=== PATIENT | female | born 1940 | race Two or more races ===

== ENCOUNTER 2017-10-21 09:00 | Inpatient (IN) | payer OTHER, MEDICAID ==
[~2017-10-21] VITALS: Ht 162.6 cm; Wt 63.6 kg
[~2017-10-21 09:00] MED LIST: HYDR25T PO; LORA-352 PO; OXYB15TA12 PO; SERT-160 PO; ZIPR80CA9 PO
[2017-10-21 10:49] LABS: Hemoglobin 12.3 g/dL (12.2-16.2); Red Cell Distribution Width 18.5 % (11.8-14.3)
[2017-10-21 10:52] LABS: Hematocrit 37.7 % (36.0-46.0); Mean Corpuscular Hemoglobin 24.9 pg (28.0-32.0); Mean Corpuscular Hgb Conc. 32.6 g/dL (32.0-36.0); Mean Corpuscular Volume 76.5 fL (80.0-100.0); Platelet Count (auto) 258 10^3/uL (140-450); Red Blood Cells 4.93 10^6/uL (4.0-5.20); White Blood Cell 5.4 10^3/uL (4.4-10.8)
[2017-10-21] MEDS ORDERED: SODIUM CHLORIDE 0.9% 1,000 ML IVB ONE (10:54)
[2017-10-21] MEDS ORDERED: LEVOFLOXACIN 500 MG/100 ML PREMIX BAG IV ONE (11:00)
[2017-10-21 11:05] LABS: Band Neutrophils % (manual) 0; Basophils % (manual) 0 (0.0-2.0); Blast Cells 0; Eosinophils % (manual) 0 (0-7); Metamyelocytes % 0; Myelocytes % 0; Promyelocytes % 0; Reactive Lymphocytes 0
[2017-10-21 11:20] LABS: Alanine Aminotransferase 9 U/L (13-56); Albumin 3.5 g/dL (3.4-5.0); Alkaline Phosphatase 86 U/L (45-117); Anion Gap 13 (5-15); Aspartate Aminotransferase 14 U/L (15-37); BUN/Creatinine Ratio 5.1; Bilirubin, Total 0.3 mg/dL (0.2-1.0); Blood Urea Nitrogen 6 mg/dL (7-18); Calcium 8.9 mg/dL (8.5-10.1); Carbon Dioxide 22 mmol/L (21-32); Chloride 104 mmol/L (98-107); GFR African American 57 mL/min; GFR Non-African American 47 mL/min; Glucose 75 mg/dL (74-106); Potassium 3.4 mmol/L (3.5-5.1); Sodium 139 mmol/L (136-145)
[2017-10-21 11:58] LABS: Lactic Acid w/Reflex 2.4 mmol/L (0.4-2.0)
[2017-10-21 12:14] LABS: Lymphocytes % (manual) 35 (10.0-50.0); Monocytes % (manual) 8 (0-12)
[2017-10-21] MEDS ORDERED: ONDANSETRON HCL 4 MG/2 ML VIAL IV PRN (13:00)
[2017-10-21] MEDS ORDERED: HYDROcodone-ACET 5/325MG TAB PO PRN (13:00)
[2017-10-21] MEDS ORDERED: MORPHINE SULFATE 10 MG/ML INJ 1ML SDV IV PRN (13:00)
[2017-10-21] MEDS ORDERED: methylPREDNISolone SOD SUCC 125 MG/2 ML VL IV ONE (13:15)
[2017-10-21] MEDS ORDERED: LORA-622 PO (13:55)
[2017-10-21] MEDS ORDERED: ATOR20TA50 PO (13:55)
[2017-10-21] MEDS ORDERED: LORA1TAB12 PO (13:55)
[2017-10-21] MEDS ORDERED: ZIPR80CA8 PO (13:57)
[2017-10-21] MEDS ORDERED: SERT-135 PO (13:57)
[2017-10-21] MEDS ORDERED: HYDR50CA2 PO (14:03)
[2017-10-21] MEDS ORDERED: LEVO75TA6 PO (14:03)
[2017-10-21] MEDS ORDERED: BRIM0.1S3 EACHEYE (14:03)
[2017-10-21] MEDS ORDERED: ERY05OO OP (14:03)
[2017-10-21] MEDS ORDERED: PERP2TAB6 PO (14:03)
[2017-10-21] MEDS ORDERED: CARB25TA22 PO (14:03)
[2017-10-21] MEDS ORDERED: ALEN70TA2 PO (14:03)
[2017-10-21 14:09] LABS: INR 0.95 (0.9-1.15); Partial Thromboplastin Time 31.4 sec (22.64-33.71); Prothrombin Time 10.4 sec (9.37-12.3)
[2017-10-21] MEDS ORDERED: guaiFENesin 200 MG/10 ML UD PO PRN (15:00)
[2017-10-21] MEDS: CARBIDOPA W LEVODOPA 25/100mg TABLET PO SCH ×2 (15:45→21:59)
[2017-10-21] MEDS ORDERED: LORazepam 0.5 MG TAB PO PRN (17:15)
[2017-10-21] MEDS: AZITHROMYCIN 500MG/ 250ML 250 ML IV SCH (17:25)
[2017-10-21] MEDS: cefTRIAXone 1GM/10ml IVPUSH 10 ML IV SCH (17:25)
[2017-10-21] MEDS: ERYTHROMY OPTH OINT 5mg/gm 1gm RIGHTEYE SCH ×2 (18:00→22:00)
[2017-10-21] MEDS: IPRATROPIUM BROM 0.5 MG/2.5ML INH SOL NEB SCH (18:04)
[2017-10-21] MEDS: BUDESONIDE (INHALATION) 0.5 MG/2 ML NEB NEB SCH (18:04)
[2017-10-21] MEDS: ALBUTEROL SULF 2.5 MG/0.5ML(0.5%) NEB SOLN NEB SCH (18:04)
[2017-10-21 20:50] VITALS: BP 109/52
[2017-10-21] MEDS: hydrOXYzine 25 MG TAB or CAP PO SCH (21:58)
[2017-10-21] MEDS: ATORVASTATIN 20 MG TAB PO SCH (21:58)
[2017-10-21] MEDS: methylPREDNISolone SOD SUCC 40 MG/ML VL IV SCH (21:58)
[2017-10-21] MEDS: SERTRALINE HCL 50 MG TAB PO SCH (21:59)
[2017-10-21] MEDS: ZIPRASIDONE 80MG PO SCH (22:00)
[2017-10-21] MEDS ORDERED: ZIPRASIDONE HCL 80 MG CAP PO SCH (22:00)
[2017-10-21] MEDS ORDERED: PATIENTS OWN MEDICATION (Carbidopa-Levodopa (Carbidopa/Levodopa Odt 25-100 mg) 1 TAB) PO SCH (22:00)
[2017-10-21] MEDS ORDERED: PATIENTS OWN MEDICATION (Sertraline Hcl 1 TAB) PO SCH (22:00)
[2017-10-21] MEDS: BRIMONIDINE 0.2% OPTH Soln 5ml EACHEYE SCH (22:01)
[2017-10-21 22:51] VITALS: BP 109/52
[2017-10-22] MEDS: IPRATROPIUM BROM 0.5 MG/2.5ML INH SOL NEB SCH ×4 (00:30→19:08)
[2017-10-22] MEDS: ALBUTEROL SULF 2.5 MG/0.5ML(0.5%) NEB SOLN NEB SCH ×2 (00:30→07:20)
[2017-10-22 05:00] VITALS: BP 107/66
[2017-10-22] MEDS: ERYTHROMY OPTH OINT 5mg/gm 1gm RIGHTEYE SCH ×5 (05:24→22:19)
[2017-10-22] MEDS: CARBIDOPA W LEVODOPA 25/100mg TABLET PO SCH ×3 (05:25→22:22)
[2017-10-22] MEDS: LEVOTHYROXINE SODIUM 25 MCG TAB PO SCH (06:09)
[2017-10-22] MEDS: BUDESONIDE (INHALATION) 0.5 MG/2 ML NEB NEB SCH ×2 (07:20→19:09)
[2017-10-22 08:00] VITALS: BP 103/43
[2017-10-22 08:26] LABS: Basophils # (auto) 0 uL; Eosinophils # (auto) 0 uL; Hematocrit 35.3 % (36.0-46.0); Hemoglobin 11.7 g/dL (12.2-16.2); Lymphocytes # (auto) 0.8 uL; Mean Corpuscular Hgb Conc. 33.2 g/dL (32.0-36.0); Monocytes # (auto) 0.2 uL; Monocytes % (auto) 3.7 % (0.0-12.0); Neutrophils # (auto) 4.4 uL; White Blood Cell 5.4 10^3/uL (4.4-10.8)
[2017-10-22 08:29] LABS: Basophils % (auto) 0.3 % (0.0-2.0); Lymphocytes % (auto) 14.3 % (10.0-50.0); Mean Corpuscular Hemoglobin 25.1 pg (28.0-32.0); Mean Corpuscular Volume 75.5 fL (80.0-100.0); Neutrophils % (auto) 81.7 % (37.0-80.0); Nucleated Red Blood Cells % 0.1 %; Platelet Count (auto) 231 10^3/uL (140-450); Red Blood Cells 4.67 10^6/uL (4.0-5.20); Red Cell Distribution Width 18.5 % (11.8-14.3)
[2017-10-22 08:50] LABS: BUN/Creatinine Ratio 10.7; Calcium 8.5 mg/dL (8.5-10.1)
[2017-10-22 09:00] VITALS: BP 103/43
[2017-10-22] MEDS ORDERED: PATIENTS OWN MEDICATION (Levothyroxine Sodium 1 TAB) PO SCH (10:00)
[2017-10-22] MEDS: BRIMONIDINE 0.2% OPTH Soln 5ml EACHEYE SCH ×2 (10:00→22:19)
[2017-10-22] MEDS ORDERED: PANTOPRAZOLE 40 MG/10 ML VIAL IV SCH (10:00)
[2017-10-22] MEDS ORDERED: LEVOFLOXACIN 500MG 100 ML IV SCH (10:00)
[2017-10-22] MEDS: methylPREDNISolone SOD SUCC 40 MG/ML VL IV SCH (10:31)
[2017-10-22] MEDS: AZITHROMYCIN 500MG/ 250ML 250 ML IV SCH (10:31)
[2017-10-22] MEDS: SERTRALINE HCL 50 MG TAB PO SCH ×2 (10:31→22:20)
[2017-10-22] MEDS: cefTRIAXone 1GM/10ml IVPUSH 10 ML IV SCH (10:32)
[2017-10-22 13:00] VITALS: BP 115/82
[2017-10-22] MEDS ORDERED: methylPREDNISolone SOD SUCC 125 MG/2 ML VL IV SCH (14:00)
[2017-10-22] MEDS: LEVALBUTEROL HCL 1.25 MG/3 ML NEB IN PRN ×2 (14:13→19:08)
[2017-10-22] MEDS: predniSONE 20 MG TAB PO SCH ×2 (15:50→22:20)
[2017-10-22 17:00] VITALS: BP 119/56
[2017-10-22 22:00] VITALS: BP 146/91
[2017-10-22] MEDS: ZIPRASIDONE 80MG PO SCH (22:00)
[2017-10-22] MEDS: ATORVASTATIN 20 MG TAB PO SCH (22:20)
[2017-10-22] MEDS: hydrOXYzine 25 MG TAB or CAP PO SCH (22:20)
[2017-10-23] MEDS: IPRATROPIUM BROM 0.5 MG/2.5ML INH SOL NEB SCH ×3 (00:48→11:46)
[2017-10-23] MEDS: LEVALBUTEROL HCL 1.25 MG/3 ML NEB IN PRN (00:48)
[2017-10-23 05:00] VITALS: BP 153/83
[2017-10-23] MEDS: ERYTHROMY OPTH OINT 5mg/gm 1gm RIGHTEYE SCH ×2 (05:30→12:00)
[2017-10-23] MEDS: predniSONE 20 MG TAB PO SCH (05:30)
[2017-10-23] MEDS: CARBIDOPA W LEVODOPA 25/100mg TABLET PO SCH (05:30)
[2017-10-23] MEDS: LEVOTHYROXINE SODIUM 25 MCG TAB PO SCH (06:08)
[2017-10-23] MEDS: BUDESONIDE (INHALATION) 0.5 MG/2 ML NEB NEB SCH (07:14)
[2017-10-23 09:06] VITALS: BP 142/88
[2017-10-23] MEDS ORDERED: PANTOPRAZOLE 40 MG TAB PO SCH (10:00)
[2017-10-23] MEDS: SERTRALINE HCL 50 MG TAB PO SCH (10:00)
[2017-10-23] MEDS ORDERED: AZITHROMYCIN 250 MG TAB PO SCH ×2 (10:00)
[2017-10-23] MEDS: BRIMONIDINE 0.2% OPTH Soln 5ml EACHEYE SCH (10:00)
[2017-10-23] MEDS ORDERED: cefTRIAXone W LIDOCAINE 1 GM IM IM SCH (10:00)
[2017-10-23 11:32] VITALS: BP 135/67
[2017-10-23 13:00] VITALS: BP 128/80
== END 2017-10-23 12:55 | disposition home health service (06) | DRG 189 ==
LOC: EDUNIT# 09:00 → ER 09:00 → EDBD 09:00 → TELE 09:01 → WEST WING 20:48
PROVIDERS: ADMIT Internal Medicine; ATTEND Family Medicine
DX: J96.00 Acute respiratory failure, unspecified whether with hypoxia or hypercapnia (principal); G20 Parkinson's disease; J44.0 Chronic obstructive pulmonary disease with (acute) lower respiratory infection; J44.1 Chronic obstructive pulmonary disease with (acute) exacerbation; E78.5 Hyperlipidemia, unspecified; E03.9 Hypothyroidism, unspecified; E87.6 Hypokalemia; F29 Unspecified psychosis not due to a substance or known physiological condition; F41.1 Generalized anxiety disorder; R32 Unspecified urinary incontinence; R73.9 Hyperglycemia, unspecified; Z82.49 Family history of ischemic heart disease and other diseases of the circulatory system; Z79.899 Other long term (current) drug therapy; Z79.83 Long term (current) use of bisphosphonates
CPT/HCPCS: 36415; 71045; 80048; 80053; 80061; 83605; 83735; 84443; 84484; 85007; 85025; 85027; 85379; 85610; 85730; 87040; 93005; 94640; 94761; 96361; 96365; 96375; 97163; C9113; J0696; J1956

== ENCOUNTER 2022-05-05 07:04 | Inpatient (IN) | payer OTHER, MEDICAID ==
[~2022-05-05] VITALS: Ht 157.5 cm; Wt 49.0 kg
[~2022-05-05 07:04] MED LIST changes: +ATOR20TA50 PO; +BRIM0.1S3 EACHEYE; +CARB25TA79 PO; +ERY05OO OP; +HYDR-3682 PO; -HYDR25T PO; +LEVO75TA6 PO; -LORA-352 PO; +LORA1TAB23 PO; +MONT5CHW23 PO; -OXYB15TA12 PO; +POM IN; +POM PO; -SERT-160 PO; +SERT50TA19 PO; +ZIPR80CA37 PO; -ZIPR80CA9 PO
[2022-05-05] MEDS ORDERED: SODIUM CHLORIDE 0.9% 1,000 ML IV ONE (07:30)
[2022-05-05 09:01] LABS: Basophils # (auto) 0 10 ^3/uL (0-0.2); Basophils % (auto) 0.5 % (0.0-2.0); Eosinophils # (auto) 0 10 ^3/uL (0-0.8); Eosinophils % (auto) 0.2 % (0.0-7.0); Hematocrit 36.5 % (36.0-46.0); Hemoglobin 11.8 g/dL (12.2-16.2); Lymphocytes # (auto) 0.6 10 ^3/uL (0.4-5.4); Lymphocytes % (auto) 22.7 % (10.0-50.0); Mean Corpuscular Hemoglobin 27.5 pg (28.0-32.0); Mean Corpuscular Hgb Conc. 32.5 g/dL (32.0-36.0); Mean Corpuscular Volume 84.6 fL (80.0-100.0); Monocytes # (auto) 0.3 10 ^3/uL (0-1.3); Monocytes % (auto) 9.1 % (0.0-12.0); Neutrophils # (auto) 1.9 10 ^3/uL (1.6-8.6); Neutrophils % (auto) 67.5 % (37.0-80.0); Red Blood Cells 4.31 10^6/uL (4.0-5.20); Red Cell Distribution Width 18.8 % (11.8-14.3); White Blood Cell 2.8 10^3/uL (4.4-10.8)
[2022-05-05 09:15] LABS: Calcium 7.1 mg/dL (8.5-10.1); Potassium 3.2 mmol/L (3.5-5.1)
[2022-05-05 09:19] LABS: BUN/Creatinine Ratio 15.3; Bilirubin, Total 0.3 mg/dL (0.2-1.0); Total Protein 5.8 g/dL (6.4-8.2)
[2022-05-05 09:53] LABS: Urine WBC None Seen /hpf (0 - 5)
[2022-05-05 10:40] LABS: Urine Amorphous Crystal FEW /hpf (None Seen); Urine Bacteria NONE SEEN /hpf (None Seen); Urine Blood TRACE /uL (Negative); Urine Mucus FEW (None Seen); Urine Specific Gravity 1.017 (1.001-1.035)
[2022-05-05] MEDS ORDERED: MORPHINE SULFATE INJ 2 MG/ml SYRG IV PRN (12:15)
[2022-05-05] MEDS ORDERED: NITROGLYCERIN 0.4 MG SL TAB SL PRN (12:15)
[2022-05-05 13:31] LABS: INR 0.99 (0.9-1.15)
[2022-05-05] MEDS: POTASSIUM CHLORIDE 20 MEQ in D5W/LACTATED RINGERS 1,000 ML IV SCH ×2 (13:47→23:19)
[2022-05-05] MEDS: MORPHINE SULFATE INJ 2 MG/ml SYRG IV PRN ×2 (15:05→21:28)
[2022-05-05 17:00] VITALS: BP 122/85
[2022-05-05 17:11] LABS: Cholesterol 267 mg/dL (< 200)
[2022-05-05 17:13] LABS: HDL Cholesterol 48 mg/dL (40-59); LDL Cholesterol 212 mg/dL (< 100); Triglycerides 142 mg/dL (< 150)
[2022-05-05 17:36] LABS: Alcohol, Urine < 3.0 mg/dL (0-10); Amphetamine Screen, Urine NEGATIVE (NEGATIVE); Barbiturate Scree,Urine NEGATIVE (NEGATIVE); Benzodiazephine Screen, Urine POSITIVE (NEGATIVE); Cannabinoid Screen, Urine NEGATIVE (NEGATIVE); Cocaine Screen, Urine NEGATIVE (NEGATIVE); Opiate Scree,Urine NEGATIVE (NEGATIVE); Phencyclidine Screen, Urine NEGATIVE (NEGATIVE)
[2022-05-05 22:00] VITALS: BP 115/62
[2022-05-05] MEDS: ACETAMINOPHEN 325 MG TAB PO PRN (23:00)
[2022-05-05] MEDS ORDERED: POTASSIUM CHL 20MEQ/100ML 100 ML IV ONE (23:05)
[2022-05-06 05:00] VITALS: BP 123/70
[2022-05-06 07:50] VITALS: BP 135/85
[2022-05-06 08:14] LABS: Basophils # (auto) 0 10 ^3/uL (0-0.2); Basophils % (auto) 0.4 % (0.0-2.0); Eosinophils # (auto) 0 10 ^3/uL (0-0.8); Eosinophils % (auto) 0.2 % (0.0-7.0); Hemoglobin 11.2 g/dL (12.2-16.2); Lymphocytes # (auto) 1.1 10 ^3/uL (0.4-5.4); Lymphocytes % (auto) 31.6 % (10.0-50.0); Mean Corpuscular Hemoglobin 27.8 pg (28.0-32.0); Mean Corpuscular Hgb Conc. 32.8 g/dL (32.0-36.0); Mean Corpuscular Volume 84.7 fL (80.0-100.0); Monocytes # (auto) 0.5 10 ^3/uL (0-1.3); Monocytes % (auto) 14.7 % (0.0-12.0); Neutrophils # (auto) 1.9 10 ^3/uL (1.6-8.6); Neutrophils % (auto) 53.1 % (37.0-80.0); Nucleated Red Blood Cells % 0.1 %; Red Blood Cells 4.02 10^6/uL (4.0-5.20); Red Cell Distribution Width 18.7 % (11.8-14.3); White Blood Cell 3.6 10^3/uL (4.4-10.8)
[2022-05-06 08:28] LABS: Calcium 8.1 mg/dL (8.5-10.1)
[2022-05-06 08:33] LABS: Albumin 2.7 g/dL (3.4-5.0); BUN/Creatinine Ratio 10.2; Bilirubin, Total 0.5 mg/dL (0.2-1.0)
[2022-05-06] MEDS ORDERED: ENOXAPARIN SOD 30 MG/0.3 ML SYRINGE SC SCH (10:00)
[2022-05-06] MEDS: POTASSIUM CHLORIDE 20 MEQ in D5W/LACTATED RINGERS 1,000 ML IV SCH ×2 (10:04→11:46)
[2022-05-06] MEDS: ACETAMINOPHEN 325 MG TAB PO PRN (10:08)
[2022-05-06] MEDS ORDERED: LORazepam 0.5 MG TAB PO ONE (10:45)
[2022-05-06] MEDS ORDERED: LORazepam 0.5 MG TAB PO PRN (10:45)
[2022-05-06] MEDS ORDERED: SERTRALINE HCL 50 MG TAB PO ONE (10:45)
[2022-05-06] MEDS ORDERED: CARBIDOPA W LEVODOPA 25/100mg TABLET PO ONE (10:45)
[2022-05-06] MEDS ORDERED: LEVOTHYROXINE SODIUM 25 MCG TAB PO ONE (10:45)
[2022-05-06 13:00] VITALS: BP 102/62
[2022-05-06] MEDS: HYDROcodone-ACET 5/325MG TAB PO PRN (13:04)
[2022-05-06] MEDS: CARBIDOPA W LEVODOPA 25/100mg TABLET PO SCH ×2 (13:04→22:19)
[2022-05-06 17:00] VITALS: BP 107/70
[2022-05-06] MEDS: BRIMONIDINE 0.2% OPTH Soln 5ml EACHEYE SCH (22:18)
[2022-05-06] MEDS: FAMOTIDINE 20 MG TAB PO SCH (22:19)
[2022-05-06] MEDS: SERTRALINE HCL 50 MG TAB PO SCH (22:19)
[2022-05-06] MEDS: ATORVASTATIN 20 MG TAB PO SCH (22:19)
[2022-05-06] MEDS: MONTELUKAST SODIUM 10 MG TAB PO SCH (22:19)
[2022-05-07] MEDS: POTASSIUM CHLORIDE 20 MEQ in D5W/LACTATED RINGERS 1,000 ML IV SCH (03:35)
[2022-05-07 05:08] LABS: Basophils # (auto) 0 10 ^3/uL (0-0.2); Basophils % (auto) 0.3 % (0.0-2.0); Eosinophils # (auto) 0 10 ^3/uL (0-0.8); Eosinophils % (auto) 0.4 % (0.0-7.0); Hematocrit 31.6 % (36.0-46.0); Hemoglobin 10.8 g/dL (12.2-16.2); Lymphocytes # (auto) 0.9 10 ^3/uL (0.4-5.4); Lymphocytes % (auto) 24.4 % (10.0-50.0); Mean Corpuscular Hemoglobin 28.8 pg (28.0-32.0); Mean Corpuscular Hgb Conc. 34.3 g/dL (32.0-36.0); Mean Corpuscular Volume 83.9 fL (80.0-100.0); Monocytes # (auto) 0.5 10 ^3/uL (0-1.3); Monocytes % (auto) 12.8 % (0.0-12.0); Neutrophils # (auto) 2.3 10 ^3/uL (1.6-8.6); Neutrophils % (auto) 62.1 % (37.0-80.0); Red Blood Cells 3.77 10^6/uL (4.0-5.20); Red Cell Distribution Width 18.6 % (11.8-14.3); White Blood Cell 3.7 10^3/uL (4.4-10.8)
[2022-05-07] MEDS: LEVOTHYROXINE SODIUM 25 MCG TAB PO SCH (05:11)
[2022-05-07] MEDS: CARBIDOPA W LEVODOPA 25/100mg TABLET PO SCH ×3 (05:11→21:14)
[2022-05-07 05:29] LABS: BUN/Creatinine Ratio 7.1; Potassium 3.8 mmol/L (3.5-5.1)
[2022-05-07 09:00] VITALS: BP 91/55
[2022-05-07] MEDS: SERTRALINE HCL 50 MG TAB PO SCH ×2 (09:18→21:14)
[2022-05-07] MEDS: BRIMONIDINE 0.2% OPTH Soln 5ml EACHEYE SCH ×2 (09:18→21:13)
[2022-05-07] MEDS: HYDROcodone-ACET 5/325MG TAB PO PRN ×3 (09:18→23:27)
[2022-05-07] MEDS: Ensure HIGH Protein Chocolate 8oz Bottle PO SCH ×2 (12:15→17:32)
[2022-05-07] MEDS: MONTELUKAST SODIUM 10 MG TAB PO SCH (21:14)
[2022-05-07] MEDS: ATORVASTATIN 20 MG TAB PO SCH (21:14)
[2022-05-07] MEDS: FAMOTIDINE 20 MG TAB PO SCH (21:14)
[2022-05-08 05:50] LABS: Basophils # (auto) 0 10 ^3/uL (0-0.2); Basophils % (auto) 0.3 % (0.0-2.0); Eosinophils # (auto) 0 10 ^3/uL (0-0.8); Eosinophils % (auto) 0.6 % (0.0-7.0); Hematocrit 30.8 % (36.0-46.0); Hemoglobin 10.2 g/dL (12.2-16.2); Lymphocytes # (auto) 1.4 10 ^3/uL (0.4-5.4); Mean Corpuscular Hemoglobin 28.1 pg (28.0-32.0); Mean Corpuscular Hgb Conc. 33.3 g/dL (32.0-36.0); Mean Corpuscular Volume 84.3 fL (80.0-100.0); Monocytes # (auto) 0.6 10 ^3/uL (0-1.3); Monocytes % (auto) 14.3 % (0.0-12.0); Neutrophils # (auto) 2.3 10 ^3/uL (1.6-8.6); Neutrophils % (auto) 52.8 % (37.0-80.0); Nucleated Red Blood Cells % 0.1 %; Red Blood Cells 3.65 10^6/uL (4.0-5.20); Red Cell Distribution Width 18.6 % (11.8-14.3); White Blood Cell 4.4 10^3/uL (4.4-10.8)
[2022-05-08] MEDS: CARBIDOPA W LEVODOPA 25/100mg TABLET PO SCH ×3 (06:24→21:42)
[2022-05-08] MEDS: LEVOTHYROXINE SODIUM 25 MCG TAB PO SCH (06:40)
[2022-05-08] MEDS: Ensure HIGH Protein Chocolate 8oz Bottle PO SCH ×3 (08:36→18:00)
[2022-05-08 09:00] VITALS: BP_SYST 125; BP_SYST 142; BP_DIAS 50; BP_DIAS 51
[2022-05-08] MEDS ORDERED: SERT-377 PO (10:14)
[2022-05-08] MEDS ORDERED: LEVO50TA7 PO (10:14)
[2022-05-08] MEDS: BRIMONIDINE 0.2% OPTH Soln 5ml EACHEYE SCH ×2 (10:35→21:42)
[2022-05-08] MEDS: HYDROcodone-ACET 5/325MG TAB PO PRN ×2 (10:36→14:51)
[2022-05-08] MEDS: SERTRALINE HCL 50 MG TAB PO SCH ×2 (10:36→21:43)
[2022-05-08 13:00] VITALS: BP_SYST 100; BP_SYST 126; BP_DIAS 50; BP_DIAS 51
[2022-05-08 16:50] VITALS: BP 110/58
[2022-05-08] MEDS: FAMOTIDINE 20 MG TAB PO SCH (21:42)
[2022-05-08] MEDS: ATORVASTATIN 20 MG TAB PO SCH (21:42)
[2022-05-08] MEDS: MONTELUKAST SODIUM 10 MG TAB PO SCH (21:43)
[2022-05-08 22:00] VITALS: BP 112/63
[2022-05-09 05:00] VITALS: BP 144/76
[2022-05-09 05:16] LABS: Basophils # (auto) 0 10 ^3/uL (0-0.2); Basophils % (auto) 0.5 % (0.0-2.0); Eosinophils # (auto) 0 10 ^3/uL (0-0.8); Eosinophils % (auto) 0.3 % (0.0-7.0); Hematocrit 35.4 % (36.0-46.0); Hemoglobin 11.6 g/dL (12.2-16.2); Lymphocytes # (auto) 1.2 10 ^3/uL (0.4-5.4); Lymphocytes % (auto) 24.2 % (10.0-50.0); Mean Corpuscular Hemoglobin 27.7 pg (28.0-32.0); Mean Corpuscular Hgb Conc. 32.7 g/dL (32.0-36.0); Mean Corpuscular Volume 84.7 fL (80.0-100.0); Monocytes # (auto) 0.7 10 ^3/uL (0-1.3); Monocytes % (auto) 14.2 % (0.0-12.0); Neutrophils # (auto) 3.1 10 ^3/uL (1.6-8.6); Neutrophils % (auto) 60.8 % (37.0-80.0); Nucleated Red Blood Cells % 0.2 %; Red Blood Cells 4.18 10^6/uL (4.0-5.20); White Blood Cell 5.1 10^3/uL (4.4-10.8)
[2022-05-09] MEDS: CARBIDOPA W LEVODOPA 25/100mg TABLET PO SCH ×3 (07:07→22:26)
[2022-05-09] MEDS: LEVOTHYROXINE SODIUM 25 MCG TAB PO SCH (07:07)
[2022-05-09 08:37] VITALS: BP 122/66
[2022-05-09] MEDS: Ensure HIGH Protein Chocolate 8oz Bottle PO SCH ×3 (09:33→18:13)
[2022-05-09] MEDS: BRIMONIDINE 0.2% OPTH Soln 5ml EACHEYE SCH ×2 (11:54→21:50)
[2022-05-09] MEDS: SERTRALINE HCL 50 MG TAB PO SCH ×2 (11:55→22:26)
[2022-05-09] MEDS: HYDROcodone-ACET 5/325MG TAB PO PRN (11:55)
[2022-05-09] MEDS: ACETAMINOPHEN 325 MG TAB PO PRN (21:49)
[2022-05-09] MEDS: MONTELUKAST SODIUM 10 MG TAB PO SCH (21:49)
[2022-05-09] MEDS: FAMOTIDINE 20 MG TAB PO SCH (21:50)
[2022-05-09] MEDS: ATORVASTATIN 20 MG TAB PO SCH (21:50)
[2022-05-09 22:00] VITALS: BP_SYST 115; BP_SYST 83; BP_DIAS 46; BP_DIAS 64
[2022-05-09 22:25] VITALS: BP 115/64
[2022-05-10 04:55] VITALS: BP 125/67
[2022-05-10] MEDS: LEVOTHYROXINE SODIUM 25 MCG TAB PO SCH (07:35)
[2022-05-10] MEDS: CARBIDOPA W LEVODOPA 25/100mg TABLET PO SCH ×2 (07:35→14:00)
[2022-05-10 08:30] VITALS: BP 110/69
[2022-05-10] MEDS: SERTRALINE HCL 50 MG TAB PO SCH (10:40)
[2022-05-10] MEDS: BRIMONIDINE 0.2% OPTH Soln 5ml EACHEYE SCH (10:40)
[2022-05-10] MEDS: Ensure HIGH Protein Chocolate 8oz Bottle PO SCH ×2 (10:41→12:00)
[2022-05-10 12:20] VITALS: BP 110/69
[2022-05-10 14:16] VITALS: BP 96/55
[2022-05-10] MEDS: HYDROcodone-ACET 5/325MG TAB PO PRN (14:42)
[2022-05-11] MEDS ORDERED: HYDR-4902 PO (07:21)
[2022-05-11] MEDS ORDERED: HYDR1SOL PO (12:48)
[2022-05-11] MEDS ORDERED: PERCOT PO (12:53)
== END 2022-05-10 15:20 | disposition home or self-care (01) | DRG 543 ==
LOC: ER 07:04 → EDBD 07:04 → TELE 12:11 → TELE-CENTR 14:35 → CENTRAL 05-07 10:56
PROVIDERS: ADMIT Registered Nurse; ATTEND Internal Medicine
DX: M48.56XA Collapsed vertebra, not elsewhere classified, lumbar region, initial encounter for fracture (principal); E46 Unspecified protein-calorie malnutrition; Z68.1 Body mass index [BMI] 19.9 or less, adult; E03.9 Hypothyroidism, unspecified; D69.6 Thrombocytopenia, unspecified; E78.5 Hyperlipidemia, unspecified; G20 Parkinson's disease; J45.909 Unspecified asthma, uncomplicated; K21.9 Gastro-esophageal reflux disease without esophagitis; S09.90XA Unspecified injury of head, initial encounter; F31.9 Bipolar disorder, unspecified; F41.9 Anxiety disorder, unspecified; Z20.822 Contact with and (suspected) exposure to COVID-19; Y93.01 Activity, walking, marching and hiking; W01.0XXA Fall on same level from slipping, tripping and stumbling without subsequent striking against object, initial encounter; I25.2 Old myocardial infarction; Z82.49 Family history of ischemic heart disease and other diseases of the circulatory system; Y92.89 Other specified places as the place of occurrence of the external cause; Y99.8 Other external cause status
CPT/HCPCS: 36415; 70450; 71045; 72131; 72192; 73030; 80048; 80053; 80061; 80307; 81001; 82962; 83735; 84443; 84484; 85025; 85610; 93005; 93306; 93886; 96361; 96374; 97110; 97116; 97163; 97530; G0378; J3480

== ENCOUNTER 2022-05-11 03:54 | Inpatient (IN) | payer OTHER, MEDICAID ==
[~2022-05-11] VITALS: Ht 152.4 cm; Wt 43.7 kg
[~2022-05-11 03:54] MED LIST changes: -ATOR20TA50 PO; -BRIM0.1S3 EACHEYE; -ERY05OO OP; -HYDR-3682 PO; +LEVO50TA7 PO; -LEVO75TA6 PO; -MONT5CHW23 PO; -POM IN; -POM PO; +SERT-377 PO; -SERT50TA19 PO; -ZIPR80CA37 PO
[2022-05-11] MEDS ORDERED: HYDROcodone-ACET 5/325MG TAB PO ONE (07:15)
[2022-05-11] MEDS ORDERED: HYDR-4902 PO (07:21)
[2022-05-11 08:09] LABS: Urine Bacteria MANY /hpf (None Seen); Urine Blood Negative /uL (Negative); Urine Mucus FEW (None Seen); Urine Specific Gravity 1.027 (1.001-1.035); Urine WBC 68 /hpf (0 - 5)
[2022-05-11 10:55] LABS: Hematocrit 30.3 % (36.0-46.0); Hemoglobin 9.9 g/dL (12.2-16.2); Mean Corpuscular Hemoglobin 27.6 pg (28.0-32.0); Mean Corpuscular Hgb Conc. 32.7 g/dL (32.0-36.0); Mean Corpuscular Volume 84.4 fL (80.0-100.0); Red Blood Cells 3.59 10^6/uL (4.0-5.20); Red Cell Distribution Width 17.8 % (11.8-14.3); White Blood Cell 2.1 10^3/uL (4.4-10.8)
[2022-05-11 10:57] LABS: Basophils % (manual) 0 (0.0-2.0); Blast Cells 0; Promyelocytes % 0; Reactive Lymphocytes 0
[2022-05-11 11:12] LABS: INR 0.97 (0.9-1.15); Partial Thromboplastin Time 36.6 sec (24.6-33.4)
[2022-05-11 11:13] LABS: Band Neutrophils % (manual) 6; Eosinophils % (manual) 1 (0-7); Lymphocytes % (manual) 39 (10.0-50.0); Metamyelocytes % 4; Monocytes % (manual) 20 (0-12); Myelocytes % 1
[2022-05-11 11:17] LABS: BUN/Creatinine Ratio 30.2; Potassium 3.9 mmol/L (3.5-5.1)
[2022-05-11] MEDS ORDERED: HYDR1SOL PO (12:48)
[2022-05-11] MEDS ORDERED: PERCOT PO (12:53)
[2022-05-11] MEDS: MORPHINE SULFATE INJ 2 MG/ml SYRG IV PRN (20:07)
[2022-05-11 21:06] VITALS: BP 109/63
[2022-05-11 22:00] VITALS: BP 109/63
[2022-05-11] MEDS: HYDROcodone-ACET 5/325MG TAB PO PRN (22:33)
[2022-05-12 05:00] VITALS: BP 93/45
[2022-05-12 08:00] VITALS: BP 147/77
[2022-05-12 08:30] VITALS: BP 147/77
[2022-05-12] MEDS: MORPHINE SULFATE INJ 2 MG/ml SYRG IV PRN (09:20)
[2022-05-12] MEDS ORDERED: LEVOTHYROXINE SODIUM 50 MCG TAB PO ONE (11:15)
[2022-05-12] MEDS: HYDROcodone-ACET 5/325MG TAB PO PRN ×2 (12:45→20:27)
[2022-05-12 13:13] VITALS: BP 152/81
[2022-05-12 16:38] VITALS: BP 132/79
[2022-05-12 18:21] LABS: Hematocrit 33.4 % (36.0-46.0); Hemoglobin 11.1 g/dL (12.2-16.2); Mean Corpuscular Hemoglobin 27.7 pg (28.0-32.0); Mean Corpuscular Hgb Conc. 33.1 g/dL (32.0-36.0); Mean Corpuscular Volume 83.7 fL (80.0-100.0); Red Blood Cells 3.99 10^6/uL (4.0-5.20); White Blood Cell 2.5 10^3/uL (4.4-10.8)
[2022-05-12 18:26] LABS: Basophils % (manual) 0 (0.0-2.0); Blast Cells 0; Eosinophils % (manual) 0 (0-7); Myelocytes % 0; Promyelocytes % 0
[2022-05-12 18:41] LABS: BUN/Creatinine Ratio 15.1; Calcium 8.2 mg/dL (8.5-10.1)
[2022-05-12 18:44] LABS: Bilirubin, Total 0.5 mg/dL (0.2-1.0); Total Protein 6.8 g/dL (6.4-8.2)
[2022-05-12 19:25] LABS: Lymphocytes % (manual) 30 (10.0-50.0); Monocytes % (manual) 15 (0-12)
[2022-05-12 19:26] LABS: Band Neutrophils % (manual) 2; Metamyelocytes % 1; Reactive Lymphocytes 2
[2022-05-12 20:00] VITALS: BP 152/89
[2022-05-12] MEDS: ONDANSETRON HCL 4 MG/2 ML VIAL IV PRN (22:06)
[2022-05-12] MEDS: CARBIDOPA W LEVODOPA 25/100mg TABLET PO SCH (22:06)
[2022-05-12] MEDS: SERTRALINE HCL 50 MG TAB PO SCH (22:06)
[2022-05-13] MEDS: LORazepam 0.5 MG TAB PO PRN (01:50)
[2022-05-13] MEDS: LEVOTHYROXINE SODIUM 50 MCG TAB PO SCH (07:07)
[2022-05-13 08:05] VITALS: BP 112/68
[2022-05-13 09:00] VITALS: BP 112/68
[2022-05-13] MEDS: CARBIDOPA W LEVODOPA 25/100mg TABLET PO SCH ×2 (10:12→22:40)
[2022-05-13] MEDS: SERTRALINE HCL 50 MG TAB PO SCH ×2 (10:13→22:41)
[2022-05-13] MEDS: HYDROcodone-ACET 5/325MG TAB PO PRN ×3 (10:14→22:43)
[2022-05-13 13:00] VITALS: BP 119/71
[2022-05-13 22:00] VITALS: BP_SYST 103; BP_SYST 83; BP_DIAS 47; BP_DIAS 61
[2022-05-14 05:00] VITALS: BP 114/59
[2022-05-14] MEDS: HYDROcodone-ACET 5/325MG TAB PO PRN ×3 (06:16→22:58)
[2022-05-14] MEDS: LEVOTHYROXINE SODIUM 50 MCG TAB PO SCH (06:17)
[2022-05-14 08:15] VITALS: BP 94/54
[2022-05-14 09:00] VITALS: BP 94/54
[2022-05-14] MEDS: CARBIDOPA W LEVODOPA 25/100mg TABLET PO SCH ×2 (10:00→20:56)
[2022-05-14] MEDS: SERTRALINE HCL 50 MG TAB PO SCH ×2 (10:00→20:56)
[2022-05-14] MEDS: MORPHINE SULFATE INJ 2 MG/ml SYRG IV PRN ×2 (12:16→20:58)
[2022-05-14 13:00] VITALS: BP 120/72
[2022-05-14 16:36] VITALS: BP 115/68
[2022-05-14] MEDS: ONDANSETRON HCL 4 MG/2 ML VIAL IV PRN (20:58)
[2022-05-14 22:00] VITALS: BP 139/71
[2022-05-14] MEDS: LORazepam 0.5 MG TAB PO PRN (22:58)
[2022-05-15] VITALS (7 sets, daily range): BP systolic 99–133; BP diastolic 61–78
[2022-05-15] MEDS: LEVOTHYROXINE SODIUM 50 MCG TAB PO SCH (06:18)
[2022-05-15] MEDS: HYDROcodone-ACET 5/325MG TAB PO PRN (06:19)
[2022-05-15] MEDS: CARBIDOPA W LEVODOPA 25/100mg TABLET PO SCH ×2 (09:45→21:22)
[2022-05-15] MEDS: SERTRALINE HCL 50 MG TAB PO SCH ×2 (09:46→21:21)
[2022-05-15] MEDS: MORPHINE SULFATE INJ 2 MG/ml SYRG IV PRN ×2 (09:54→16:32)
[2022-05-16] VITALS (7 sets, daily range): BP systolic 105–157; BP diastolic 59–91
[2022-05-16] MEDS: HYDROcodone-ACET 5/325MG TAB PO PRN ×3 (04:43→16:22)
[2022-05-16] MEDS: LEVOTHYROXINE SODIUM 50 MCG TAB PO SCH (05:58)
[2022-05-16] MEDS: SERTRALINE HCL 50 MG TAB PO SCH ×2 (10:16→22:19)
[2022-05-16] MEDS: CARBIDOPA W LEVODOPA 25/100mg TABLET PO SCH ×2 (10:16→22:19)
[2022-05-16] MEDS: MORPHINE SULFATE INJ 2 MG/ml SYRG IV PRN (10:48)
[2022-05-17] VITALS (7 sets, daily range): BP systolic 101–132; BP diastolic 52–76
[2022-05-17] MEDS: HYDROcodone-ACET 5/325MG TAB PO PRN ×3 (01:35→21:05)
[2022-05-17] MEDS: LEVOTHYROXINE SODIUM 50 MCG TAB PO SCH (06:32)
[2022-05-17] MEDS: CARBIDOPA W LEVODOPA 25/100mg TABLET PO SCH ×2 (09:58→21:04)
[2022-05-17] MEDS: SERTRALINE HCL 50 MG TAB PO SCH ×2 (09:58→21:04)
[2022-05-17] MEDS: ONDANSETRON HCL 4 MG/2 ML VIAL IV PRN (11:02)
[2022-05-18 05:00] VITALS: BP 118/75
[2022-05-18] MEDS: LEVOTHYROXINE SODIUM 50 MCG TAB PO SCH ×2 (06:21→09:35)
[2022-05-18] MEDS: HYDROcodone-ACET 5/325MG TAB PO PRN ×2 (06:21→13:57)
[2022-05-18 08:00] VITALS: BP 110/80
[2022-05-18 09:00] VITALS: BP 101/80
[2022-05-18] MEDS: CARBIDOPA W LEVODOPA 25/100mg TABLET PO SCH ×2 (09:35→22:09)
[2022-05-18] MEDS: SERTRALINE HCL 50 MG TAB PO SCH ×2 (09:35→22:10)
[2022-05-18 13:00] VITALS: BP 100/61
[2022-05-18 17:00] VITALS: BP 94/54
[2022-05-18 22:00] VITALS: BP 122/74
[2022-05-19 05:00] VITALS: BP 124/68
[2022-05-19] MEDS: HYDROcodone-ACET 5/325MG TAB PO PRN ×2 (06:53→21:53)
[2022-05-19 09:00] VITALS: BP 110/69
[2022-05-19] MEDS: CARBIDOPA W LEVODOPA 25/100mg TABLET PO SCH ×2 (10:17→21:51)
[2022-05-19] MEDS: SERTRALINE HCL 50 MG TAB PO SCH ×2 (10:18→21:52)
[2022-05-19 13:00] VITALS: BP 149/61
[2022-05-19 17:00] VITALS: BP_SYST 123; BP_SYST 132; BP_DIAS 61; BP_DIAS 71
[2022-05-19 22:00] VITALS: BP 127/84
[2022-05-19] MEDS: ONDANSETRON HCL 4 MG/2 ML VIAL IV PRN (22:01)
[2022-05-20] VITALS (7 sets, daily range): BP systolic 79–123; BP diastolic 39–77
[2022-05-20] MEDS: LEVOTHYROXINE SODIUM 50 MCG TAB PO SCH (06:51)
[2022-05-20] MEDS: ONDANSETRON HCL 4 MG/2 ML VIAL IV PRN ×2 (06:57→18:50)
[2022-05-20] MEDS: MORPHINE SULFATE INJ 2 MG/ml SYRG IV PRN (06:58)
[2022-05-20] MEDS: SERTRALINE HCL 50 MG TAB PO SCH ×2 (09:08→22:27)
[2022-05-20] MEDS: CARBIDOPA W LEVODOPA 25/100mg TABLET PO SCH ×2 (09:08→22:27)
[2022-05-20] MEDS: HYDROcodone-ACET 5/325MG TAB PO PRN ×2 (13:37→18:51)
[2022-05-21] MEDS: HYDROcodone-ACET 5/325MG TAB PO PRN ×2 (02:34→20:30)
[2022-05-21 05:00] VITALS: BP 112/61
[2022-05-21] MEDS: LEVOTHYROXINE SODIUM 50 MCG TAB PO SCH (06:26)
[2022-05-21 09:00] VITALS: BP 104/55
[2022-05-21] MEDS: SERTRALINE HCL 50 MG TAB PO SCH ×2 (09:31→21:41)
[2022-05-21] MEDS: CARBIDOPA W LEVODOPA 25/100mg TABLET PO SCH ×2 (09:31→21:41)
[2022-05-21 13:00] VITALS: BP 104/67
[2022-05-21 16:57] VITALS: BP 103/55
[2022-05-21 20:00] VITALS: BP 123/64
[2022-05-21 22:00] VITALS: BP 123/64
[2022-05-22] MEDS: LORazepam 0.5 MG TAB PO PRN (00:52)
[2022-05-22 05:00] VITALS: BP 155/75
[2022-05-22] MEDS: LEVOTHYROXINE SODIUM 50 MCG TAB PO SCH (05:45)
[2022-05-22 09:00] VITALS: BP 114/65
[2022-05-22] MEDS: SERTRALINE HCL 50 MG TAB PO SCH ×2 (09:24→22:47)
[2022-05-22] MEDS: CARBIDOPA W LEVODOPA 25/100mg TABLET PO SCH ×2 (09:24→22:46)
[2022-05-22] MEDS: HYDROcodone-ACET 5/325MG TAB PO PRN ×2 (12:42→23:59)
[2022-05-22 14:00] VITALS: BP_SYST 136; BP_SYST 149; BP_DIAS 72; BP_DIAS 85
[2022-05-22 16:58] VITALS: BP 126/67
[2022-05-22 22:04] VITALS: BP 107/61
[2022-05-23] MEDS: HYDROcodone-ACET 5/325MG TAB PO PRN ×3 (04:05→23:18)
[2022-05-23 05:17] VITALS: BP 97/64
[2022-05-23] MEDS: LEVOTHYROXINE SODIUM 50 MCG TAB PO SCH (06:22)
[2022-05-23 09:00] VITALS: BP 128/75
[2022-05-23] MEDS: SERTRALINE HCL 50 MG TAB PO SCH ×2 (09:20→23:01)
[2022-05-23] MEDS: CARBIDOPA W LEVODOPA 25/100mg TABLET PO SCH ×2 (09:20→23:01)
[2022-05-23] MEDS: Ensure HIGH Protein Chocolate 8oz Bottle PO SCH ×2 (12:12→18:00)
[2022-05-23 13:00] VITALS: BP 121/68
[2022-05-23] MEDS ORDERED: POLYETHYLENE GLYCOL 17 GM PWDR PO ONE (14:45)
[2022-05-23 17:00] VITALS: BP 105/65
[2022-05-23 22:00] VITALS: BP 110/75
[2022-05-24 04:39] VITALS: BP 102/59
[2022-05-24] MEDS: LEVOTHYROXINE SODIUM 50 MCG TAB PO SCH (08:27)
[2022-05-24] MEDS: Ensure HIGH Protein Chocolate 8oz Bottle PO SCH ×3 (08:27→17:00)
[2022-05-24] MEDS: CARBIDOPA W LEVODOPA 25/100mg TABLET PO SCH ×2 (08:28→21:34)
[2022-05-24 09:00] VITALS: BP 123/72
[2022-05-24] MEDS ORDERED: DOCUSATE SOD 100 MG CAP PO ONE (10:00)
[2022-05-24] MEDS: SERTRALINE HCL 50 MG TAB PO SCH ×2 (12:42→21:34)
[2022-05-24 13:00] VITALS: BP 104/61
[2022-05-24] MEDS: HYDROcodone-ACET 5/325MG TAB PO PRN ×3 (13:06→21:34)
[2022-05-24 17:00] VITALS: BP 121/75
[2022-05-24 22:11] VITALS: BP 121/76
[2022-05-25] MEDS: HYDROcodone-ACET 5/325MG TAB PO PRN ×2 (02:46→10:36)
[2022-05-25] MEDS: LEVOTHYROXINE SODIUM 50 MCG TAB PO SCH (06:27)
[2022-05-25] MEDS: Ensure HIGH Protein Chocolate 8oz Bottle PO SCH (08:00)
[2022-05-25 09:00] VITALS: BP 121/75
[2022-05-25] MEDS: CARBIDOPA W LEVODOPA 25/100mg TABLET PO SCH (09:08)
[2022-05-25] MEDS: SERTRALINE HCL 50 MG TAB PO SCH (09:08)
[2022-05-25] MEDS ORDERED: HYDR-4902 PO (11:19)
[2022-05-25 11:32] VITALS: BP 121/75
== END 2022-05-25 13:15 | disposition home health service (06) | DRG 536 ==
LOC: EDBD 03:54 → ER 03:54 → OVERFLOW 12:22 → WEST WING 20:17
PROVIDERS: ADMIT Registered Nurse; ATTEND Family Medicine
DX: S32.512A Fracture of superior rim of left pubis, initial encounter for closed fracture (principal); D69.6 Thrombocytopenia, unspecified; E78.5 Hyperlipidemia, unspecified; G20 Parkinson's disease; E03.9 Hypothyroidism, unspecified; K21.9 Gastro-esophageal reflux disease without esophagitis; J45.909 Unspecified asthma, uncomplicated; E78.00 Pure hypercholesterolemia, unspecified; F41.9 Anxiety disorder, unspecified; Z20.822 Contact with and (suspected) exposure to COVID-19; W18.39XA Other fall on same level, initial encounter; F31.9 Bipolar disorder, unspecified; I48.91 Unspecified atrial fibrillation; M79.18 Myalgia, other site; I25.2 Old myocardial infarction; Y93.89 Activity, other specified; Y92.098 Other place in other non-institutional residence as the place of occurrence of the external cause; Y99.8 Other external cause status
CPT/HCPCS: 36415; 72192; 80048; 80053; 81001; 85007; 85027; 85610; 85730; 87081; 87086; 97110; 97163; 97530; G0378; J2405

== ENCOUNTER 2023-09-21 12:47 | Inpatient (IN) | payer OTHER, MEDICARE ==
[~2023-09-21] VITALS: Ht 154.9 cm; Wt 46.4 kg
[~2023-09-21 12:47] MED LIST changes: +HYDR-4902 PO; +LORA-1123 PO; -LORA1TAB23 PO; +RISP2TAB62 PO
[2023-09-21 14:10] LABS: Hemoglobin 13.8 g/dL (12.2-16.2); Mean Corpuscular Volume 81.5 fL (80.0-100.0); White Blood Cell 3.5 10^3/uL (4.4-10.8)
[2023-09-21 14:11] LABS: Hematocrit 43.1 % (36.0-46.0); Mean Corpuscular Hemoglobin 26.2 pg (28.0-32.0); Mean Corpuscular Hgb Conc. 32.1 g/dL (32.0-36.0); Red Blood Cells 5.29 10^6/uL (4.0-5.20); Red Cell Distribution Width 18.2 % (11.8-14.3)
[2023-09-21 14:13] LABS: Band Neutrophils % (manual) 0; Basophils % (manual) 0 (0.0-2.0); Blast Cells 0; Metamyelocytes % 0; Myelocytes % 0; Promyelocytes % 0; Reactive Lymphocytes 0
[2023-09-21 14:14] LABS: Urine Bacteria NONE SEEN /hpf (None Seen); Urine Blood Negative /uL (Negative); Urine Clarity Clear (Clear); Urine Color Colorless (Yellow); Urine Hyaline Cast FEW /lpf (0 - 2); Urine Mucus FEW (None Seen); Urine Protein, UAD Negative (Negative); Urine Specific Gravity 1.005 (1.001-1.035); Urine Urobilinogen Normal (Negative); Urine WBC 1 /hpf (0 - 5); Urine pH 6.5 (5.0-8.0)
[2023-09-21 14:42] LABS: Eosinophils % (manual) 1 (0-7); Lymphocytes % (manual) 73 (10.0-50.0); Monocytes % (manual) 9 (0-12); Platelet Estimate Decreased
[2023-09-21 14:47] LABS: Amphetamine Screen, Urine Neg (NEGATIVE)
[2023-09-21 14:49] LABS: Barbiturate Scree,Urine Neg (NEGATIVE); Benzodiazephine Screen, Urine Neg (NEGATIVE); Cannabinoid Screen, Urine Neg (NEGATIVE); Cocaine Screen, Urine Neg (NEGATIVE); Opiate Scree,Urine Neg (NEGATIVE); Phencyclidine Screen, Urine Neg (NEGATIVE)
[2023-09-21 14:50] LABS: Albumin 4.2 g/dL (3.2-4.8); Alkaline Phosphatase 77 U/L (46-116); Anion Gap 7 (5-15); Aspartate Aminotransferase 17 U/L (13-40); Bilirubin, Total 0.4 mg/dL (0.2-1.0); Calcium 9.5 mg/dL (8.5-10.1); Carbon Dioxide 28 mmol/L (20-30); Chloride 105 mmol/L (98-107); Glucose 91 mg/dL (74-106); INR 1.02 (0.9-1.15); Partial Thromboplastin Time 36.2 SEC (24.5-34.5); Potassium 3.5 mmol/L (3.5-5.1); Prothrombin Time 10.7 sec (9.3-11.8); Sodium 140 mmol/L (136-145); Total Protein 7.5 g/dL (5.7-8.2)
[2023-09-21 14:52] LABS: Alanine Aminotransferase < 9 U/L (7-40); BUN/Creatinine Ratio 6.9 (10.0-20.0); Blood Urea Nitrogen < 5 mg/dL (9-23)
[2023-09-21 18:19] VITALS: PULSE 90; RESP 22; O2SAT 99
[2023-09-21 19:40] VITALS: PULSE 90; RESP 22; O2SAT 100
[2023-09-21] MEDS ORDERED: NITROGLYCERIN 0.4 MG SL TAB SL PRN (21:30)
[2023-09-21] MEDS ORDERED: MORPHINE SULFATE INJ 2 MG/ml SYRG IV PRN (21:30)
[2023-09-21] MEDS ORDERED: DONEPEZIL HYDROCHLORIDE 5 MG TAB PO SCH (22:00)
[2023-09-21] MEDS: CARBIDOPA W LEVODOPA 25/100mg TABLET PO SCH (22:14)
[2023-09-21] MEDS: ATORVASTATIN 20 MG TAB PO SCH (22:14)
[2023-09-21] MEDS: ONDANSETRON HCL 4 MG/2 ML VIAL IV PRN (22:55)
[2023-09-21] MEDS: ACETAMINOPHEN 325 MG TAB PO PRN (23:18)
[2023-09-22 05:26] LABS: Chloride 106 mmol/L (98-107); Potassium 3.2 mmol/L (3.5-5.1); Sodium 143 mmol/L (136-145)
[2023-09-22 05:27] LABS: Anion Gap 6 (5-15); Carbon Dioxide 31 mmol/L (20-30)
[2023-09-22 05:28] LABS: Calcium 9.2 mg/dL (8.5-10.1)
[2023-09-22 05:29] LABS: Basophils # (auto) 0 10 ^3/uL (0-0.2); Eosinophils # (auto) 0 10 ^3/uL (0-0.8); Eosinophils % (auto) 0.6 % (0.0-7.0); Lymphocytes # (auto) 1.5 10 ^3/uL (0.4-5.4); Monocytes # (auto) 0.5 10 ^3/uL (0-1.3)
[2023-09-22 05:31] LABS: Basophils % (auto) 0.6 % (0.0-2.0); Hematocrit 39.9 % (36.0-46.0); Lymphocytes % (auto) 40.4 % (10.0-50.0); Mean Corpuscular Hemoglobin 25.7 pg (28.0-32.0); Mean Corpuscular Hgb Conc. 32.4 g/dL (32.0-36.0); Mean Corpuscular Volume 79.2 fL (80.0-100.0); Monocytes % (auto) 13.3 % (0.0-12.0); Neutrophils # (auto) 1.6 10 ^3/uL (1.6-8.6); Neutrophils % (auto) 45.1 % (37.0-80.0); Nucleated Red Blood Cells % 0.2 %; Red Blood Cells 5.04 10^6/uL (4.0-5.20); Red Cell Distribution Width 18.2 % (11.8-14.3); White Blood Cell 3.6 10^3/uL (4.4-10.8)
[2023-09-22 05:32] LABS: Glucose 90 mg/dL (74-106)
[2023-09-22 05:46] LABS: BUN/Creatinine Ratio 6.5 (10.0-20.0); Blood Urea Nitrogen < 5 mg/dL (9-23)
[2023-09-22] MEDS: CARBIDOPA W LEVODOPA 25/100mg TABLET PO SCH ×3 (06:20→22:37)
[2023-09-22] MEDS: LEVOTHYROXINE SODIUM 25 MCG TAB PO SCH (06:30)
[2023-09-22] MEDS: ACETAMINOPHEN 325 MG TAB PO PRN (08:06)
[2023-09-22] MEDS: ONDANSETRON HCL 4 MG/2 ML VIAL IV PRN (08:06)
[2023-09-22 08:56] VITALS: PULSE 107; RESP 28; O2SAT 97
[2023-09-22] MEDS ORDERED: risperiDONE 1 MG TAB PO SCH (10:00)
[2023-09-22] MEDS: ENOXAPARIN SOD 40 MG/0.4 ML SYRINGE SC SCH (10:00)
[2023-09-22] MEDS: SERTRALINE HCL 50 MG TAB PO SCH (10:17)
[2023-09-22 11:06] LABS: Base Excess 4.2 mmol/L (-2.0-2.0)
[2023-09-22] MEDS ORDERED: LEVO75CA3 PO (15:22)
[2023-09-22 19:45] VITALS: RESP 18; O2SAT 95
[2023-09-22] MEDS: ATORVASTATIN 20 MG TAB PO SCH (22:14)
[2023-09-22] MEDS ORDERED: LORazepam 2MG/ML-1ML VIAL IV PRN (22:15)
[2023-09-22] MEDS: DONEPEZIL HYDROCHLORIDE 5 MG TAB PO SCH (22:37)
[2023-09-22] MEDS ORDERED: IPRATROPIUM BROM 0.5 MG/2.5ML INH SOL NEB PRN (23:15)
[2023-09-22] MEDS ORDERED: ALBUTEROL SULF 2.5 MG/0.5ML(0.5%) NEB SOLN NEB PRN (23:15)
[2023-09-22 23:51] VITALS: BP 105/54; PULSE 90; RESP 15; TEMP 97.6; O2SAT 100
[2023-09-23] VITALS (7 sets, daily range): BP systolic 98–145; BP diastolic 43–72; PULSE 71–121; RESP 19–22; TEMP 98–98.7; O2SAT 92–94
[2023-09-23] MEDS: LEVOTHYROXINE SODIUM 25 MCG TAB PO SCH (06:52)
[2023-09-23] MEDS ORDERED: HALOPERIDOL LACTATE 5 MG/ML INJ VIAL IM PRN ×2 (09:30→10:15)
[2023-09-23] MEDS: ENOXAPARIN SOD 40 MG/0.4 ML SYRINGE SC SCH (10:00)
[2023-09-23] MEDS: CARBIDOPA W LEVODOPA 25/100mg TABLET PO SCH ×2 (10:00→21:30)
[2023-09-23] MEDS: SERTRALINE HCL 50 MG TAB PO SCH (10:00)
[2023-09-23] MEDS ORDERED: LORazepam 2MG/ML-1ML VIAL IV PRN (14:30)
[2023-09-23] MEDS: guaiFENesin 200 MG/10 ML UD PO PRN (21:29)
[2023-09-23] MEDS: DONEPEZIL HYDROCHLORIDE 5 MG TAB PO SCH (21:29)
[2023-09-23] MEDS: ATORVASTATIN 20 MG TAB PO SCH (21:29)
[2023-09-23] MEDS: MELATONIN 5 MG TAB PO SCH (22:57)
[2023-09-24] VITALS (8 sets, daily range): BP systolic 94–128; BP diastolic 61–79; PULSE 82–112; RESP 18–20; TEMP 98–98.9; O2SAT 90–99
[2023-09-24] MEDS: LEVOTHYROXINE SODIUM 25 MCG TAB PO SCH (06:54)
[2023-09-24] MEDS: SERTRALINE HCL 50 MG TAB PO SCH (09:57)
[2023-09-24] MEDS: ENOXAPARIN SOD 40 MG/0.4 ML SYRINGE SC SCH (09:58)
[2023-09-24] MEDS: CARBIDOPA W LEVODOPA 25/100mg TABLET PO SCH ×2 (09:58→21:28)
[2023-09-24] MEDS: guaiFENesin 200 MG/10 ML UD PO PRN ×2 (11:58→21:35)
[2023-09-24] MEDS: DONEPEZIL HYDROCHLORIDE 5 MG TAB PO SCH (21:29)
[2023-09-24] MEDS: ATORVASTATIN 20 MG TAB PO SCH (21:29)
[2023-09-24] MEDS: MELATONIN 5 MG TAB PO SCH (21:29)
[2023-09-24] MEDS ORDERED: CARBIDOPA W LEVODOPA 25/100mg TABLET PO SCH (22:30)
[2023-09-24] MEDS: PRIMIDONE 50 MG TAB PO SCH (23:12)
[2023-09-25] VITALS (7 sets, daily range): BP systolic 102–152; BP diastolic 57–93; PULSE 75–121; RESP 14–19; TEMP 97.7–98.3; O2SAT 92–99
[2023-09-25] MEDS: LEVOTHYROXINE SODIUM 25 MCG TAB PO SCH (06:31)
[2023-09-25] MEDS: ENOXAPARIN SOD 40 MG/0.4 ML SYRINGE SC SCH ×2 (09:46→09:51)
[2023-09-25] MEDS: SERTRALINE HCL 50 MG TAB PO SCH (09:46)
[2023-09-25] MEDS: PRIMIDONE 50 MG TAB PO SCH ×3 (20:26→22:00)
[2023-09-25] MEDS: DONEPEZIL HYDROCHLORIDE 5 MG TAB PO SCH (20:26)
[2023-09-25] MEDS: ATORVASTATIN 20 MG TAB PO SCH (20:27)
[2023-09-25] MEDS: MELATONIN 5 MG TAB PO SCH (20:27)
[2023-09-25] MEDS ORDERED: CARBIDOPA W LEVODOPA 25/100mg TABLET PO SCH (22:30)
[2023-09-26 05:40] VITALS: BP 138/92; PULSE 99; TEMP 97.6; O2SAT 94
[2023-09-26] MEDS: LEVOTHYROXINE SODIUM 25 MCG TAB PO SCH (06:09)
[2023-09-26 08:00] VITALS: PULSE 59; PULSE 99; RESP 20; O2SAT 0
[2023-09-26 09:00] VITALS: BP 155/84; PULSE 93; RESP 16; TEMP 98.4; O2SAT 99
[2023-09-26] MEDS: ENOXAPARIN SOD 40 MG/0.4 ML SYRINGE SC SCH (09:38)
[2023-09-26] MEDS: SERTRALINE HCL 50 MG TAB PO SCH (09:38)
[2023-09-26 13:00] VITALS: BP 128/80; PULSE 101; RESP 18; TEMP 98.5; O2SAT 91
[2023-09-26 16:44] VITALS: BP 140/86; PULSE 84; RESP 16; TEMP 98.7; O2SAT 95
== END 2023-09-26 17:35 | disposition hospice, home (50) | DRG 70 ==
LOC: EDBD 12:47 → ER 12:47 → TELE 21:26 → TELE-WESTW 09-23 08:50
PROVIDERS: ADMIT Nurse Practitioner; ATTEND Family Medicine
DX: G93.41 Metabolic encephalopathy (principal); J96.01 Acute respiratory failure with hypoxia; J96.02 Acute respiratory failure with hypercapnia; J44.1 Chronic obstructive pulmonary disease with (acute) exacerbation; E87.3 Alkalosis; F02.C3 Dementia in other diseases classified elsewhere, severe, with mood disturbance; J98.11 Atelectasis; G45.9 Transient cerebral ischemic attack, unspecified; J44.0 Chronic obstructive pulmonary disease with (acute) lower respiratory infection; G40.209 Localization-related (focal) (partial) symptomatic epilepsy and epileptic syndromes with complex partial seizures, not intractable, without status epilepticus; G20.A1 Parkinson's disease without dyskinesia, without mention of fluctuations; I48.91 Unspecified atrial fibrillation; E78.5 Hyperlipidemia, unspecified; I25.10 Atherosclerotic heart disease of native coronary artery without angina pectoris; E78.00 Pure hypercholesterolemia, unspecified; E03.9 Hypothyroidism, unspecified; F31.9 Bipolar disorder, unspecified; I25.2 Old myocardial infarction; Z82.49 Family history of ischemic heart disease and other diseases of the circulatory system; Z79.899 Other long term (current) drug therapy
CPT/HCPCS: 36415; 36600; 70450; 70551; 71045; 80048; 80053; 80307; 81001; 82805; 83605; 83880; 84484; 85007; 85025; 85027; 85379; 85610; 85730; 87040; 87086; 93005; 97110; 97116; 97163; 97530; G0378; J2405

== ENCOUNTER 2024-02-18 14:05 | Inpatient (IN) | payer OTHER, MEDICARE ==
[~2024-02-18] VITALS: Ht 147.3 cm; Wt 52.7 kg
[~2024-02-18 14:05] MED LIST changes: -HYDR-4902 PO; -LEVO50TA7 PO; +LEVO75CA3 PO
[2024-02-18 15:42] VITALS: PULSE 78; RESP 18; O2SAT 97
[2024-02-18 16:10] LABS: Hemoglobin 13.2 g/dL (12.2-16.2); Mean Corpuscular Volume 77.3 fL (80.0-100.0)
[2024-02-18 16:11] LABS: Mean Corpuscular Hemoglobin 24.8 pg (28.0-32.0); Mean Corpuscular Hgb Conc. 32.1 g/dL (32.0-36.0); Red Blood Cells 5.31 10^6/uL (4.0-5.20); Red Cell Distribution Width 18.3 % (11.8-14.3); White Blood Cell 4.5 10^3/uL (4.4-10.8)
[2024-02-18] MEDS: SODIUM CHLORIDE 0.9% 500 ML IVB ONE (16:11)
[2024-02-18 16:14] LABS: Band Neutrophils % (manual) 0; Basophils % (manual) 0 (0.0-2.0); Blast Cells 0; Eosinophils % (manual) 0 (0-7); Metamyelocytes % 0; Myelocytes % 0; Promyelocytes % 0; Reactive Lymphocytes 0
[2024-02-18 16:22] LABS: Albumin 3.9 g/dL (3.2-4.8); Alkaline Phosphatase 72 U/L (46-116); Anion Gap 3 (5-15); Aspartate Aminotransferase 11 U/L (13-40); BUN/Creatinine Ratio 13.5 (10.0-20.0); Bilirubin, Total 0.5 mg/dL (0.2-1.0); Blood Urea Nitrogen 10 mg/dL (9-23); Calcium 8.9 mg/dL (8.7-10.4); Carbon Dioxide 30 mmol/L (20-30); Chloride 103 mmol/L (98-107); Glucose 91 mg/dL (74-106); Potassium 4.2 mmol/L (3.5-5.1); Sodium 136 mmol/L (136-145); Total Protein 7.2 g/dL (5.7-8.2)
[2024-02-18 16:27] LABS: Alanine Aminotransferase < 9 U/L (7-40)
[2024-02-18 17:34] LABS: Hypochromia Slight; Lymphocytes % (manual) 49 (10.0-50.0); Monocytes % (manual) 11 (0-12); Platelet Estimate Decreased
[2024-02-18 17:35] LABS: Anisocytosis Slight
[2024-02-18] MEDS ORDERED: LORazepam 2MG/ML-1ML VIAL IV PRN (18:00)
[2024-02-18] MEDS ORDERED: ALBUTEROL SULF 2.5 MG/0.5ML(0.5%) NEB SOLN NEB PRN (18:00)
[2024-02-18] MEDS ORDERED: IPRATROPIUM BROM 0.5 MG/2.5ML INH SOL NEB PRN (18:00)
[2024-02-18 18:11] LABS: Magnesium 2.1 mg/dL (1.6-2.6)
[2024-02-18] MEDS: LORazepam 2MG/ML-1ML VIAL IM ONE (18:12)
[2024-02-18 18:13] LABS: Phosphorus 3.5 mg/dL (2.4-5.1)
[2024-02-18] MEDS: predniSONE 20 MG TAB PO SCH (18:34)
[2024-02-18 18:35] VITALS: O2SAT 92
[2024-02-18] MEDS: IPRATROPIUM BROM 0.5 MG/2.5ML INH SOL NEB ONE (18:35)
[2024-02-18] MEDS: ALBUTEROL SULF 2.5 MG/0.5ML(0.5%) NEB SOLN NEB SCH (18:35)
[2024-02-18 19:30] VITALS: PULSE 113; RESP 18; O2SAT 93
[2024-02-18 19:45] VITALS: BP 142/81; PULSE 83; RESP 22; TEMP 98.2; O2SAT 92
[2024-02-18 20:20] LABS: Urine Bacteria None Seen /hpf (None Seen)
[2024-02-18 20:29] LABS: Urine Blood Negative /uL (Negative); Urine Clarity Clear (Clear); Urine Color Light-Yellow (Yellow); Urine Protein, UAD Negative (Negative); Urine Specific Gravity 1.007 (1.001-1.035); Urine Urobilinogen Normal (Negative); Urine WBC 1 /hpf (0 - 5)
[2024-02-18] MEDS: HALOPERIDOL LACTATE 5 MG/ML INJ VIAL IM ONE (21:02)
[2024-02-18] MEDS: ATORVASTATIN 20 MG TAB PO SCH (21:47)
[2024-02-18 21:54] VITALS: PULSE 88; RESP 21; O2SAT 100
[2024-02-18 22:04] VITALS: PULSE 110; RESP 21; O2SAT 100
[2024-02-19] VITALS (13 sets, daily range): BP systolic 106; BP diastolic 68; PULSE 80–104; RESP 16–32; TEMP 98.5; O2SAT 86–100
[2024-02-19 05:22] LABS: Triglycerides 103 mg/dL (< 150)
[2024-02-19 05:23] LABS: LDL Cholesterol 163 mg/dL (< 100)
[2024-02-19 05:24] LABS: Cholesterol 215 mg/dL (< 200); HDL Cholesterol 43 mg/dL (40-59)
[2024-02-19] MEDS: LEVOTHYROXINE SODIUM 25 MCG TAB PO SCH (07:09)
[2024-02-19] MEDS: ASPirin 81 mg TAB PO SCH (10:36)
[2024-02-19 11:58] LABS: Folate (Folic Acid) 16.53 ng/mL (>5.38)
[2024-02-19 12:00] LABS: Free T4 (Free Thyroxine) 0.93 ng/dL (0.89-1.76)
[2024-02-19] MEDS: CARBIDOPA W LEVODOPA 25/100mg TABLET PO SCH (14:53)
[2024-02-19] MEDS ORDERED: BISA10SU5 PR (19:08)
[2024-02-19] MEDS ORDERED: LORA-483 PO (19:08)
[2024-02-19] MEDS: PRIMIDONE 50 MG TAB PO SCH (23:04)
[2024-02-20] VITALS (8 sets, daily range): BP systolic 140–147; BP diastolic 82–96; PULSE 92–113; RESP 16–20; TEMP 36.7; O2SAT 95–98
[2024-02-20] MEDS ORDERED: ASPI-325 PO (13:45)
[2024-02-20] MEDS ORDERED: ATOR20TA50 PO (13:45)
== END 2024-02-20 17:56 | disposition hospice, home (50) | DRG 71 ==
LOC: ER 14:05 → EDBD 14:05 → EDUNIT# 14:05 → TELE 17:56 → TELE-WESTW 02-19 18:12
PROVIDERS: ADMIT Nurse Practitioner Family; ATTEND Internal Medicine
DX: G93.41 Metabolic encephalopathy (principal); I48.20 Chronic atrial fibrillation, unspecified; J44.1 Chronic obstructive pulmonary disease with (acute) exacerbation; J45.901 Unspecified asthma with (acute) exacerbation; D69.6 Thrombocytopenia, unspecified; G20.A1 Parkinson's disease without dyskinesia, without mention of fluctuations; E78.00 Pure hypercholesterolemia, unspecified; E03.9 Hypothyroidism, unspecified; G30.9 Alzheimer's disease, unspecified; F31.9 Bipolar disorder, unspecified; I25.10 Atherosclerotic heart disease of native coronary artery without angina pectoris; K76.0 Fatty (change of) liver, not elsewhere classified; K59.00 Constipation, unspecified; F17.200 Nicotine dependence, unspecified, uncomplicated; F02.A0 Dementia in other diseases classified elsewhere, mild, without behavioral disturbance, psychotic disturbance, mood disturbance, and anxiety; D64.9 Anemia, unspecified; Z79.01 Long term (current) use of anticoagulants; Z79.899 Other long term (current) drug therapy; Z90.710 Acquired absence of both cervix and uterus; I25.2 Old myocardial infarction; Z82.49 Family history of ischemic heart disease and other diseases of the circulatory system
CPT/HCPCS: 36415; 36600; 70450; 70551; 71045; 80053; 80061; 81001; 82607; 82746; 82805; 83605; 83735; 84100; 84439; 84443; 85007; 85027; 87040; 87077; 87186; 93005; 94640; G0378